=== PATIENT | male | born 1965 | race Caucasian/White ===

== ENCOUNTER 2020-09-05 19:51 | Day surgery (SDC) | payer MEDICAID ==
[~2020-09-05] VITALS: Ht 167.6 cm; Wt 136.1 kg
[2020-09-05 20:02] VITALS: Ht 167.6 cm; Wt 136.1 kg
[2020-09-05] MEDS ORDERED: CPAP (20:04)
[2020-09-05] MEDS ORDERED: RESTLESS LEG (20:05)
[2020-09-05 20:14] LABS: BASOPHILS 0.3 % (0-2); EOSINOPHILS 7.6 % (0-7); HEMATOCRIT 47.6 % (42.0-54.0); HEMOGLOBIN 16.2 g/dL (13.5-17.5); IMMATURE GRANULOCYTES 0.3 % (0-5); LYMPHOCYTE ABS# 4.97 10x3/uL (1.32-3.57); LYMPHOCYTES 42.9 % (15-50); MCH 31.5 pg (26.0-34.0); MCV 92.4 fL (80.0-100.0); MONOCYTES 8.5 % (2-11); NEUTROPHIL ABS# 4.68 10x3/uL (1.78-5.38); NEUTROPHILS 40.4 % (40-80); PLATELET COUNT 261 10x3/uL (130-400); RBC 5.15 10x6/uL (4.20-6.10); RDW 13.6 % (11.5-14.5); WBC 11.6 10x3/uL (4.8-10.8)
[2020-09-05 20:21] LABS: ANION GAP 17.6 mmol/L (8-16); APTT 24.7 SECONDS (22.8-39.4); CALCIUM 9.1 mg/dL (8.5-10.1); CARBON DIOXIDE 22.2 mmol/L (21.0-32.0); CREATININE - SERUM 1.3 mg/dL (0.6-1.3); INR 1.02 (0.85-1.17); POTASSIUM - SERUM 3.8 mmol/L (3.5-5.1); PROTIME 12.4 SECONDS (11.6-15.0)
[2020-09-05 20:27] LABS: ALBUMIN 3.8 g/dL (3.4-5.0); BILIRUBIN - TOTAL 0.35 mg/dL (0.2-1.3); PROTEIN - SERUM 8.2 g/dL (6.4-8.2)
--- NOTE | 2020-09-05 22:15 | NUR ---
PT ARRIVED ON UNIT VIA STRETCHER. TRANSFERRED TO BED AND POSITIONED FOR COMFORT. ORIENTED TO ROOM AND CALL LIGHT. IV FLUIDS CONTINUED.
[2020-09-05 22:25] VITALS: BP 117/74
[2020-09-05 22:40] VITALS: BP 120/76
[2020-09-05 22:55] VITALS: BP 117/68
[2020-09-05 23:05] VITALS: BP 128/87
--- NOTE | 2020-09-05 23:30 | NUR ---
PT DRINKING WATER AND CONSUMED X2 JELLO. HE HAS VOIDED X1 SINCE ARRIVING ON UNIT. NO PAIN OR NAUSEA REPORTED.
[2020-09-05 23:35] VITALS: BP 123/84
--- NOTE | 2020-09-05 23:50 | NUR ---
REMOVED IV TO LEFT AC WITH CATHETER TIP INTACT. PRESSURE DRESSING APPLIED.
--- NOTE | 2020-09-05 23:55 | NUR ---
GAVE WRITTEN AND VERBAL INSTRUCTIONS TO CALL DR CHAVIRA OFFICE IN AM TO MAKE A FOLLOW UP APPOINTMENT.
--- NOTE | 2020-09-05 23:55 | NUR ---
ESCORTED PT DOWN TO ER EXIT VIA WHEELCHAIR AND ASSISTED INTO AWAITING VEHICLE WITH HIS SPOUSE.
== END 2020-09-05 23:58 | disposition home or self-care (01) ==
LOC: D.ER 19:51 → D.OPS 19:51 → D.ER 21:21 → EDSTATUS 22:43 → D.OPS 23:01 → D.MS 23:03 → D.OPS 23:58
PROVIDERS: Student in an Organized Health Care Education/Training Program; ATTEND Internal Medicine Gastroenterology
DX: T18.128A Food in esophagus causing other injury, initial encounter (principal); K21.00 Gastro-esophageal reflux disease with esophagitis, without bleeding; K29.50 Unspecified chronic gastritis without bleeding